=== PATIENT | male | born 1955 | race Caucasian/White ===

== ENCOUNTER 2019-07-05 22:24 | Emergency (ER) | payer BC ==
[~2019-07-05] VITALS: Ht 182.9 cm; Wt 90.9 kg
[2019-07-05 22:49] VITALS: TEMP 98.3
[2019-07-05 23:43] LABS: BASO % 0.3 % (0.0-2.0); EOS # 0.2 (0.0-0.7); EOS % 1.4 % (0-4.0); GRAN # 8.2 (1.4-6.5); GRAN % 76.5 % (42.2-75.2); HEMATOCRIT 43.8 % (42.0-52.0); HEMOGLOBIN 14.9 g/dl (13.5-18.0); LYMPH # 0.9 (1.2-3.4); LYMPH % 8.4 % (20.0-51.0); MEAN CELL VOLUME 94 fl (80.0-100.0); MEAN CORPUSCULAR HEMOGLOBIN 32 pg (27.0-31.0); MEAN CORPUSCULAR HGB CONC 34 g/dl (33.0-37.0); MEAN PLATELET VOLUME 10.6 fl (7.4-10.4); MONO # 1.4 (0.1-0.6); PLATELET COUNT 188 K/mm3 (130-400); RED BLOOD COUNT 4.68 M/mm3 (4.20-5.60); REDCELL DISTRIBUTION WIDTH-CV 12.2 % (11.5-14.5)
[2019-07-05 23:56] LABS: ALANINE AMINOTRANSFERASE 25 U/L (21-72); ALKALINE PHOSPHATASE 82 U/L (50-136); ANION GAP 7 mmol/L (7-16); AST,SGOT 21 U/L (15-37); BILIRUBIN,TOTAL 0.5 mg/dL (0.0-1.0); BLOOD UREA NITROGEN 11 mg/dL (9-20); C-REACTIVE PROTEIN 3.1 mg/dL (0.0-0.9); CALCIUM 9.2 mg/dL (8.4-10.2); CARBON DIOXIDE 26 mmol/L (22-30); CHLORIDE 108 mmol/L (98-107); CREATININE, serum 0.85 (0.66-1.25); GLUCOSE 114 mg/dL (74-106); POTASSIUM 3.9 mmol/L (3.4-5.0); SODIUM 142 mmol/L (137-145); TOTAL PROTEIN 7.1 gm/dL (6.4-8.2)
[2019-07-06 00:10] LABS: PROLACTIN 17.3 ng/mL (3.7-17.9)
[2019-07-06 00:13] LABS: TROPONIN-I < 0.012 ng/mL (0.000-0.035)
[2019-07-06 02:25] VITALS: BP 167/86; PULSE 88
== END 2019-07-06 02:25 | disposition home or self-care (01) ==
LOC: COL.ER 22:24
PROVIDERS: Physician Assistant
DX: R51 Headache (principal); I10 Essential (primary) hypertension; I48.91 Unspecified atrial fibrillation
CPT/HCPCS: J1885; J2270; Q9967